=== PATIENT | male | born 1965 | race Caucasian/White ===

== ENCOUNTER 2016-11-28 04:47 | Emergency (ER) | payer OTHER, SELFPAY ==
[2016-11-28 05:35] LABS: #Basophils 0.1 thou/uL (0.0-0.2); #Eosinphils 0.3 thou/uL (0.0-0.7); #Lymphocytes 1.8 thou/uL (1.20-3.40); #Monocytes 0.4 thou/uL (0.11-0.59); #Neutrophils 3.6 thou/uL (1.40-6.50); %Basophils 0.8 % (0.0-1.0); %Eosinophils 5.3 % (0.0-10.0); %Lymphocytes 29.9 % (21.0-51.0); %Monocytes 6.2 % (0.0-10.0); Hematocrit 53.4 % (42.0-52.0); Mean Platelet Volume 7.3 fL (7.4-10.4); White Blood Cell (WBC) Count 6.2 thou/uL (4.8-10.8)
[2016-11-28 05:54] LABS: ALT (SGPT) 25 U/L (0-55); AST (SGOT) 18 U/L (5-34); Alkaline Phosphatase 55 U/L (40-150); Anion Gap 19 mmol/L (10-20); BUN (Urea Nitrogen) 10 mg/dL (8.4-25.7); Bilirubin, Total 0.2 mg/dL (0.2-1.2); Calc. Creatinine Clearance 0 mL/min (70-130); Calcium 9.9 mg/dL (7.8-10.44); Carbon Dioxide 20 mmol/L (22-29); Chloride 106 mmol/L (98-107); Estimated GFR-MDRD 83; Globulin 3.3 g/dL (2.4-3.5); Protein, Total 8.3 g/dL (6.0-8.3)
[2016-11-28 06:04] LABS: Prothrombin Time 13.2 SEC (12.0-14.7)
[2016-11-28 06:07] LABS: Bilirubin Negative (Negative); Blood, Urine Negative (Negative); Glucose, Urine (Dipstick) Negative (Negative); Ketone, Urine Negative (Negative); Nitrite Negative (Negative); Protein, Urine (Dipstick) Negative (Neg-Trace); Urobilinogen 0.2 mg/dL (0.2-1.0)
[2016-11-28 06:07] LABS: Acetaminophen Less than 3.0 mcg/mL (10.0-30.0); Salicylate Less than 5.0 mg/dL (15.0-30.0)
[2016-11-28 06:20] LABS: Methadone Not Detected (NotDetected); Methamphetamine Not Detected (NotDetected)
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
[2016-11-28] MEDS ORDERED: Iopamidol 370 76% 100 ML VIAL ONE (09:00)
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
[2016-11-28] MEDS ORDERED: Nicotine 21 MG PATCH TOP SCH (11:30)
[2016-11-28] MEDS ORDERED: Ondansetron HCl/PF 4 MG/2 ML Vial ONE (11:40)
== END 2016-11-28 16:11 ==
LOC: NAV ERS 04:47
DX: S80.02XA Contusion of left knee, initial encounter (principal); S80.01XA Contusion of right knee, initial encounter; R45.851 Suicidal ideations; F10.129 Alcohol abuse with intoxication, unspecified; V89.2XXA Person injured in unspecified motor-vehicle accident, traffic, initial encounter
CPT/HCPCS: 36415; 70450; 71260; 72125; 74177; 80053; 80306; 80307; 81003; 85025; 85610; 93005; 96374; J2405